=== PATIENT | female | born 1955 | race Caucasian/White ===

== ENCOUNTER 2024-03-28 14:21 | Emergency (ER) | payer MEDICARE, SELFPAY ==
[2024-03-28 14:22] VITALS: BP 164/99; PULSE 91; RESP 18; TEMP 36.2; O2SAT 98; BMI 18.7
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
[2024-03-28] MEDS: oxyCODONE 5 MG Tablet PO (15:01)
--- NOTE | 2024-03-28 15:15 | RAD_ITS ---
PROCEDURE: CHEST PA AND LATERAL REASON FOR EXAM: Left-sided chest pain TECHNIQUE: Frontal and lateral views of the chest. COMPARISON: None. FINDINGS: Heart size is mildly enlarged. The thoracic aorta is tortuous and calcified. The lungs are clear. Degenerative changes are identified within the thoracic spine. RAD/Chest PA and Lateral IMPRESSION: Mild cardiomegaly with no acute pulmonary disease Reading Location: [facility]
--- NOTE | 2024-03-28 15:20 | RAD_ITS ---
PROCEDURE: HAND MIN 3 VIEWS REASON FOR EXAM: Pain TECHNIQUE: 3 view(s) of the hand COMPARISON: None. FINDINGS: No visible fracture. No suspicious bone lesion. Moderate joint space narrowing at the DIPs 1st carpometacarpal joint and radiocarpal joint. Osteopenia Soft tissues are unremarkable. RAD/Hand Min 3 Views IMPRESSION: Degenerative changes with no acute osseous abnormality in the left hand Reading Location: [facility]
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
[2024-03-28 16:30] VITALS: BP 112/75; PULSE 88; RESP 16; TEMP 36.8; O2SAT 100
== END 2024-03-28 16:32 | disposition home or self-care (01) ==
PROVIDERS: Emergency Provider Emergency Medicine; PCP Family Medicine; Visit Provider Emergency Medicine
DX: S80.12XA Contusion of left lower leg, initial encounter (principal); I10 Essential (primary) hypertension; V49.40XA Driver injured in collision with unspecified motor vehicles in traffic accident, initial encounter; Z79.01 Long term (current) use of anticoagulants; S50.12XA Contusion of left forearm, initial encounter
CPT/HCPCS: 71046; 73090; 73130; 73564; 99284